=== PATIENT | female | born 1940 | race Caucasian/White ===

== ENCOUNTER 2017-01-13 17:05 | Emergency (ER) | payer MEDICARE, OTHER ==
[~2017-01-13] VITALS: Ht 162.6 cm; Wt 75.0 kg
[2017-01-13] MEDS ORDERED: ACETAMINOPHEN WITH CODEINE 300/30MG TABLET PO ONE (18:45)
[2017-01-13] MEDS ORDERED: KETAMINE HCL 50 MG/ML 10ML IV ONE (19:00)
[2017-01-13] MEDS ORDERED: PROPOFOL 200MG/20ML VIAL IV PRN (19:00)
[2017-01-13] MEDS ORDERED: ONDANSETRON HCL 4MG/2ML VIAL IV ONE (19:00)
[2017-01-13 22:22] VITALS: BP 133/78
== END 2017-01-13 23:49 | disposition home or self-care (01) ==
LOC: ER 20:45
DX: S43.005A Unspecified dislocation of left shoulder joint, initial encounter (principal); W01.0XXA Fall on same level from slipping, tripping and stumbling without subsequent striking against object, initial encounter; Y93.89 Activity, other specified; Y99.8 Other external cause status; Y92.89 Other specified places as the place of occurrence of the external cause
CPT/HCPCS: 23650; 73030; 73060; 96374; 99152; 99285; J3490; J2704; L3670